=== PATIENT | female | born 1955 | race Caucasian/White ===

== ENCOUNTER 2016-09-08 17:56 | Inpatient (IN) ==
[2016-09-08] MEDS ORDERED: Lidocaine -MPF 1% 2 ML VIAL INFILT ONE (18:00)
--- NOTE | 2016-09-08 18:03 | Emergency Department Note ---
Disposition Clinical Impression: UTI (urinary tract infection) Qualifiers: Urinary tract infection type: site unspecified Hematuria presence: with hematuria Qualified Code(s): N39.0 - Urinary tract infection, site not specified Altered mental status Qualifiers: Altered mental status type: somnolence Qualified Code(s): R40.0 - Somnolence Disposition: Admitted As Inpatient Condition: Undetermined Time of Disposition: 21:14 Abdominal Pain HPI - General Chief Complaint: ED Abdominal Pain Stated Complaint: ABD PAIN Time Seen by Provider: 09/08/16 17:58 Source: EMS Mode of arrival: EMS Limitations: altered mental status Nursing Notes Reviewed: Yes Vital Signs Reviewed: Yes - History of Present Illness HPI Narrative: 61-year-old female with history of nonalcoholic cirrhosis arrives to [facility] emergency department with alteration in mentation, tachycardia for the past 24-48 hours. The patient currently lives at [facility] in [place] and was noted to be not acting like herself and somnolent over the past 24-48 hours by family. Family insisted the patient come to [facility] emergency department for further evaluation. The patient has a history of ascites as well as bilateral pedal edema. The patient is somnolent but is easily arousable and answering questions at this time. She is protecting her airway at this time. The patient was tachycardic on initial evaluation with a heart rate in the 130s and was hypotensive with a systolic in the 90s. The patient's blood pressure initially by EMS was noted that the patient's systolic was in the 70s. [place] [facility] [place] department her systolic is in the 90s. We will work the patient up at this time for concern for possible spontaneous bacterial peritonitis versus encephalopathy associated with an elevated ammonia, versus other etiology of patient's symptoms. Pt Subjective Complaint: abdominal pain Consistency: constant, Worsening Pain Severity: moderate Pain Scale: 5 Quality: aching Radiation: none Migration to: no migration Improves with: nothing Worsens with: nothing Context: history of similar episodes Treatments prior to arrival: none - Related Data Home Medications Medication Instructions Recorded Confirmed Alprazolam [Xanax 0.25 MG Tablet] 0.25 mg PO BID 09/08/16 09/08/16 Cyanocobalamin (Vitamin B-12) 400 mcg PO DAILY 09/08/16 09/08/16 [Vitamin B-12] Escitalopram [Lexapro] 10 mg PO DAILY 09/08/16 09/08/16 Furosemide [Lasix] 40 mg PO BID 09/08/16 09/08/16 Lactulose 20 gm PO QID 09/08/16 09/08/16 Magnesium Oxide [Mag-Ox] 400 mg PO TID 09/08/16 09/08/16 Pantoprazole Sodium [Protonix] 40 mg PO BID 09/08/16 09/08/16 Propranolol [Inderal] 20 mg PO Q8H 09/08/16 09/08/16 Rifaximin [Xifaxan] 550 mg PO BID 09/08/16 09/08/16 Spironolactone [Aldactone] 100 mg PO BID 09/08/16 09/08/16 Allergies Allergy/AdvReac Type Severity Reaction Status Date / Time codeine Allergy Rash Verified 04/10/16 10:30 Penicillins Allergy Rash Verified 04/10/16 10:30 desflurane AdvReac See Verified 09/08/16 21:08 Comments droperidol AdvReac See Verified 09/08/16 21:08 Comments fentanyl AdvReac See Verified 09/08/16 21:08 Comments midazolam AdvReac See Verified 09/08/16 21:08 Comments nitrofurantoin AdvReac See Verified 09/08/16 21:08 [From Macrobid] Comments Sulfa (Sulfonamide AdvReac See Verified 09/08/16 21:08 Antibiotics) Comments Limitations: ROS unobtainable due to patients medical condition Abdominal Pain PMH - Past Medical History Medical history: Reports: arthritis, asthma, cirrhosis, coronary artery disease , diabetes, hypertension Female Surgical History: Reports: non-contributory [employer]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 Abdomen: Abdomen is distended and has a fluid wave consistent with ascites, Normal bowel sounds 4 quadrants, patient abdomen is tender generalized without any focalization. : Patient deferred Extremities: Normal inspection, full range of motion, appropriate pulses, capillary refill under 2 seconds Neurological: Patient is somnolent and oriented x1, cranial nerves II through XII grossly intact, GCS 11 Skin: Warm, intact, no rashes noted Course - Reevaluation(s) Reevaluation #1: Dropped a sample of peritoneal fluid off to Latanya at 1905. Reevaluation #2: Patient appears to have hepatic encephalopathy as well as UTI. The patient is not at her baseline. She does not live at a nursing facility where she is able to feed and ambulate by herself. Diagnostic paracentesis revealed no acute abnormality. The ammonia was negative. The patient does have a urinary tract infection. We will admit the patient to the hospital at this time. Time: 20:47 Vital Signs Temperature 97.5 F L 09/08/16 17:58 Pulse Rate 79 09/08/16 17:58 Respiratory Rate 22 09/08/16 17:58 Blood Pressure 76/37 09/08/16 17:58 O2 Sat by Pulse Oximetry 98 09/08/16 17:58 Temperature 97.5 F L 09/08/16 17:58 Pulse Rate 76 09/08/16 20:38 Respiratory Rate 14 09/08/16 21:41 Blood Pressure 96/52 09/08/16 21:41 O2 Sat by Pulse Oximetry 99 09/08/16 20:38 Oxygen Delivery Oxygen Delivery Nasal Cannula Procedures - Paracentesis Consent Obtained: verbal consent Time Out Performed: Yes Local Anesthetic: lidocaine 1% Amount of anesthesia used (mL): 2 Fluid: clear, sent to lab for analysis Post Procedure Exam: awake, alert, normal BP, normal HR, normal SpO2 Patient Tolerated Procedure: well, no complications Complications: none Abdominal Pain - MDM Narrative Medical decision making narrative: Patient accepted by Dr. Francis - Medical Records Medical records reviewed: Yes I reviewed the patient's medical records. - Lab Data Lab results reviewed: Yes I reviewed the patient's lab results. Result diagrams: 09/08/16 19:18 09/08/16 19:18 Lab Results 03/28/17 03/28/17 03/28/17 Range/Units 18:10 19:10 19:18 WBC 5.8 (4.3-11.1) K/mcL RBC 3.91 (3.82-4.97) M/mcL Hgb 11.9 (11.5-15.4) g/dL Hct 36.5 (35.3-44.9) % MCV 93.4 (83.0-100.0) fL MCH 30.4 (28.0-33.3) pg MCHC 32.6 (31.6-35.5) g/dL RDW 17.6 H (11.5-14.5) % Plt Count 105 L (140-400) K/mcL MPV 10.1 (9.4-12.4) fL Immature Gran % 0.5 (0-4) % Seg Neutrophils % 69.5 % Lymphocytes % 17.5 % Monocytes % 10.4 % Eosinophils % 1.2 % Basophils % 0.9 % Neutrophils # 4.0 (1.6-8.9) K/mcL Lymphocytes # 1.0 (0.6-4.6) K/mcL Monocytes # 0.6 (0.0-1.3) K/mcL Eosinophils # 0.1 (0.0-0.6) K/mcL Basophils # 0.1 (0.0-0.2) K/mcL PT (9.4-12.1) Seconds INR APTT (26.0-36.0) Seconds Sodium (136-145) mEq/L Potassium (3.5-4.5) mEq/L Chloride (98-109) mEq/L Carbon Dioxide (19-29) mEq/L BUN (7-20) mg/dL Creatinine (0.57-1.11) mg/dL Est GFR ( Amer) (> 60) Est GFR (Non-Af Amer) (> 60) BUN/Creatinine Ratio (6-26) Glucose (70-99) mg/dL Calculated Osmolality (280-300) Lactic Acid (0.5-2.2) mmol/L Calcium (8.6-10.8) mg/dL Total Bilirubin (0.2-1.2) mg/dL AST (5-34) Units/L ALT (0-55) Units/L Alkaline Phosphatase (38-126) Units/L Ammonia (18-72) mcmol/L Troponin I (0-0.03) ng/mL Serum Total Protein (6.0-8.3) g/dL Albumin (3.5-5.0) g/dL Globulin (2.4-3.5) g/dL Albumin/Globulin Ratio (1.1-2.2) Lipase (8-78) Units/L Urine Color Yellow (Yellow) Urine Clarity Cloudy A (Clear) Urine pH 5.5 (5.0-8.0) pH Units Ur Specific [place] 1.013 (1.010-1.025) Urine Protein Negative (Neg-Trace) mg/dL Urine Glucose (UA) Normal (Normal) mg/dL Urine Ketones Negative (Negative) mg/dL Urine Blood Negative (Negative) Urine Nitrite Negative (Negative) Urine Bilirubin Negative (Negative) Urine Urobilinogen Normal (Normal) mg/dL Ur Leukocyte Esterase Moderate H (Negative) Urine Microscopic RBC 3-5 H (0-3) per hpf Urine Microscopic WBC 30-50 H (0-3) per hpf Ur Squamous Epith Cells Many H (None-Few) per lpf Urine Bacteria Moderate H (None-Few) per hpf Urine Yeast Moderate H (None Seen) per hpf Ur Culture Indicated? YES A (NO) Peritoneal Appearance CLEAR (Clear) Peritoneal Volume 58.0 mL Peritoneal RBC < 0.002 (0.000 - 0.002) M/mcL Periton Tot Nuc Cells 67 (0-300) TNC/mcL Periton Neutrophils 4.0 % Periton Band Neuts Test Not Performed Peritoneal Eosinophils Test Not Performed Peritoneal Basophils Test Not Performed Periton Lymphocytes % 62.0 % Periton Monocytes % 30.0 % Periton Other Cells % 4.0 % Peritoneal Tot Protein 1.2 (No Ref Range) g/dL Peritoneal LDH 60 (No Ref Range) Units/L 09/08/16 09/08/16 09/08/16 Range/Units 19:18 19:18 19:18 WBC (4.3-11.1) K/mcL RBC (3.82-4.97) M/mcL Hgb (11.5-15.4) g/dL Hct (35.3-44.9) % MCV (83.0-100.0) fL MCH (28.0-33.3) pg MCHC (31.6-35.5) g/dL RDW (11.5-14.5) % Plt Count (140-400) K/mcL MPV (9.4-12.4) fL Immature Gran % (0-4) % Seg Neutrophils % % Lymphocytes % % Monocytes % % Eosinophils % % Basophils % % Neutrophils # (1.6-8.9) K/mcL Lymphocytes # (0.6-4.6) K/mcL Monocytes # (0.0-1.3) K/mcL Eosinophils # (0.0-0.6) K/mcL Basophils # (0.0-0.2) K/mcL PT (9.4-12.1) Seconds INR APTT (26.0-36.0) Seconds Sodium 135 L (136-145) mEq/L Potassium 4.3 (3.5-4.5) mEq/L Chloride 100 (98-109) mEq/L Carbon Dioxide 31 H (19-29) mEq/L BUN 13 (7-20) mg/dL Creatinine 0.78 (0.57-1.11) mg/dL Est GFR ( Amer) > 60 (> 60) Est GFR (Non-Af Amer) > 60 (> 60) BUN/Creatinine Ratio 17 (6-26) Glucose 216 H (70-99) mg/dL Calculated Osmolality 287 (280-300) Lactic Acid (0.5-2.2) mmol/L Calcium 7.9 L (8.6-10.8) mg/dL Total Bilirubin 2.0 H (0.2-1.2) mg/dL AST 29 (5-34) Units/L ALT 15 (0-55) Units/L Alkaline Phosphatase 109 (38-126) Units/L Ammonia 49 (18-72) mcmol/L Troponin I 0.00 (0-0.03) ng/mL Serum Total Protein 5.5 L (6.0-8.3) g/dL Albumin 1.8 L (3.5-5.0) g/dL Globulin 3.7 H (2.4-3.5) g/dL Albumin/Globulin Ratio 0.5 L (1.1-2.2) Lipase 63 (8-78) Units/L Urine Color (Yellow) Urine Clarity (Clear) Urine pH (5.0-8.0) pH Units Ur Specific [place] (1.010-1.025) Urine Protein (Neg-Trace) mg/dL Urine Glucose (UA) (Normal) mg/dL Urine Ketones (Negative) mg/dL Urine Blood (Negative) Urine Nitrite (Negative) Urine Bilirubin (Negative) Urine Urobilinogen (Normal) mg/dL Ur Leukocyte Esterase (Negative) Urine Microscopic RBC (0-3) per hpf Urine Microscopic WBC (0-3) per hpf Ur Squamous Epith Cells (None-Few) per lpf Urine Bacteria (None-Few) per hpf Urine Yeast (None Seen) per hpf Ur Culture Indicated? (NO) Peritoneal Appearance (Clear) Peritoneal Volume mL Peritoneal RBC (0.000 - 0.002) M/mcL Periton Tot Nuc Cells (0-300) TNC/mcL Periton Neutrophils % Periton Band Neuts Peritoneal Eosinophils Peritoneal Basophils Periton Lymphocytes % % Periton Monocytes % % Periton Other Cells % % Peritoneal Tot Protein (No Ref Range) g/dL Peritoneal LDH (No Ref Range) Units/L 09/08/16 09/08/16 Range/Units 19:18 19:18 WBC (4.3-11.1) K/mcL RBC (3.82-4.97) M/mcL Hgb (11.5-15.4) g/dL Hct (35.3-44.9) % MCV (83.0-100.0) fL MCH (28.0-33.3) pg MCHC (31.6-35.5) g/dL RDW (11.5-14.5) % Plt Count (140-400) K/mcL MPV (9.4-12.4) fL Immature Gran % (0-4) % Seg Neutrophils % % Lymphocytes % % Monocytes % % Eosinophils % % Basophils % % Neutrophils # (1.6-8.9) K/mcL Lymphocytes # (0.6-4.6) K/mcL Monocytes # (0.0-1.3) K/mcL Eosinophils # (0.0-0.6) K/mcL Basophils # (0.0-0.2) K/mcL PT 20.6 H (9.4-12.1) Seconds INR 1.9 APTT 34.8 (26.0-36.0) Seconds Sodium (136-145) mEq/L Potassium (3.5-4.5) mEq/L Chloride (98-109) mEq/L Carbon Dioxide (19-29) mEq/L BUN (7-20) mg/dL Creatinine (0.57-1.11) mg/dL Est GFR ( Amer) (> 60) Est GFR (Non-Af Amer) (> 60) BUN/Creatinine Ratio (6-26) Glucose (70-99) mg/dL Calculated Osmolality (280-300) Lactic Acid 2.4 H (0.5-2.2) mmol/L Calcium (8.6-10.8) mg/dL Total Bilirubin (0.2-1.2) mg/dL AST (5-34) Units/L ALT (0-55) Units/L Alkaline Phosphatase (38-126) Units/L Ammonia (18-72) mcmol/L Troponin I (0-0.03) ng/mL Serum Total Protein (6.0-8.3) g/dL Albumin (3.5-5.0) g/dL Globulin (2.4-3.5) g/dL Albumin/Globulin Ratio (1.1-2.2) Lipase (8-78) Units/L Urine Color (Yellow) Urine Clarity (Clear) Urine pH (5.0-8.0) pH Units Ur Specific [place] (1.010-1.025) Urine Protein (Neg-Trace) mg/dL Urine Glucose (UA) (Normal) mg/dL Urine Ketones (Negative) mg/dL Urine Blood (Negative) Urine Nitrite (Negative) Urine Bilirubin (Negative) Urine Urobilinogen (Normal) mg/dL Ur Leukocyte Esterase (Negative) Urine Microscopic RBC (0-3) per hpf Urine Microscopic WBC (0-3) per hpf Ur Squamous Epith Cells (None-Few) per lpf Urine Bacteria (None-Few) per hpf Urine Yeast (None Seen) per hpf Ur Culture Indicated? (NO) Peritoneal Appearance (Clear) Peritoneal Volume mL Peritoneal RBC (0.000 - 0.002) M/mcL Periton Tot Nuc Cells (0-300) TNC/mcL Periton Neutrophils % Periton Band Neuts Peritoneal Eosinophils Peritoneal Basophils Periton Lymphocytes % % Periton Monocytes % % Periton Other Cells % % Peritoneal Tot Protein (No Ref Range) g/dL Peritoneal LDH (No Ref Range) Units/L - Radiology Data Radiology results reviewed: Yes I reviewed the patient's radiology results. - EKG Data EKG attestation: Yes I reviewed and interpreted this EKG. EKG results narrative: Heart rate 75 bpm. MO interval 136 ms. QTc 439 ms. Normal axis. Normal sinus rhythm. No ST elevation or ST depression noted. No acute changes noted.
[2016-09-08] MEDS ORDERED: 0.9 % Sodium Chloride 1,000 ML IVC ONE (18:05)
--- NOTE | 2016-09-08 18:05 | Emergency Department Note ---
Disposition Clinical Impression: UTI (urinary tract infection), Altered mental status Disposition: Admitted As Inpatient Condition: Undetermined General Adult HPI - General Chief complaint: ED Abdominal Pain Stated complaint: ABD PAIN Time Seen by Provider: 09/08/16 17:58 Source: EMS Mode of arrival: EMS Limitations: altered mental status - History of Present Illness Pain Scale: 5 - Related Data Home Medications Medication Instructions Recorded Confirmed Alprazolam [Xanax 0.25 MG Tablet] 0.25 mg PO BID 09/08/16 09/08/16 Cyanocobalamin (Vitamin B-12) 400 mcg PO DAILY 09/08/16 09/08/16 [Vitamin B-12] Escitalopram [Lexapro] 10 mg PO DAILY 09/08/16 09/08/16 Furosemide [Lasix] 40 mg PO BID 09/08/16 09/08/16 Lactulose 20 gm PO QID 09/08/16 09/08/16 Magnesium Oxide [Mag-Ox] 400 mg PO TID 09/08/16 09/08/16 Pantoprazole Sodium [Protonix] 40 mg PO BID 09/08/16 09/08/16 Propranolol [Inderal] 20 mg PO Q8H 09/08/16 09/08/16 Rifaximin [Xifaxan] 550 mg PO BID 09/08/16 09/08/16 Spironolactone [Aldactone] 100 mg PO BID 09/08/16 09/08/16 Allergies Allergy/AdvReac Type Severity Reaction Status Date / Time codeine Allergy Rash Verified 04/10/16 10:30 Penicillins Allergy Rash Verified 04/10/16 10:30 desflurane AdvReac See Verified 09/08/16 21:08 Comments droperidol AdvReac See Verified 09/08/16 21:08 Comments fentanyl AdvReac See Verified 09/08/16 21:08 Comments midazolam AdvReac See Verified 09/08/16 21:08 Comments nitrofurantoin AdvReac See Verified 09/08/16 21:08 [From Macrobid] Comments Sulfa (Sulfonamide AdvReac See Verified 09/08/16 21:08 Antibiotics) Comments Past Medical History - Past Medical History Medical history: Reports: arthritis, asthma, cirrhosis, coronary artery disease , diabetes, hypertension Surgical history: Reports: appendectomy, cholecystectomy, hysterectomy Psychiatric history: Reports: anxiety, depression - Social History Smoking Status: Never smoker Smokeless Tobacco Status: No Alcohol use: Reports: none Drug use: Reports: none Physical Exam - General Limitations: altered mental status General appearance: alert Course Vital Signs Temperature 97.5 F L 09/08/16 17:58 Pulse Rate 79 09/08/16 17:58 Respiratory Rate 22 09/08/16 17:58 Blood Pressure 76/37 09/08/16 17:58 O2 Sat by Pulse Oximetry 98 09/08/16 17:58 Temperature 97.7 F 09/08/16 23:24 Pulse Rate 70 09/09/16 06:10 Respiratory Rate 20 09/08/16 23:24 Blood Pressure 84/50 09/09/16 06:10 O2 Sat by Pulse Oximetry 100 09/09/16 06:10 Oxygen Delivery Oxygen Delivery Nasal Cannula Medical Decision Making - Lab Data Result diagrams: 09/09/16 06:05 09/09/16 06:05 Lab Results 09/08/16 09/08/16 09/08/16 Range/Units 18:10 19:10 19:18 WBC 5.8 (4.3-11.1) K/mcL RBC 3.91 (3.82-4.97) M/mcL Hgb 11.9 (11.5-15.4) g/dL Hct 36.5 (35.3-44.9) % MCV 93.4 (83.0-100.0) fL MCH 30.4 (28.0-33.3) pg MCHC 32.6 (31.6-35.5) g/dL RDW 17.6 H (11.5-14.5) % Plt Count 105 L (140-400) K/mcL MPV 10.1 (9.4-12.4) fL Immature Gran % 0.5 (0-4) % Seg Neutrophils % 69.5 % Lymphocytes % 17.5 % Monocytes % 10.4 % Eosinophils % 1.2 % Basophils % 0.9 % Neutrophils # 4.0 (1.6-8.9) K/mcL Lymphocytes # 1.0 (0.6-4.6) K/mcL Monocytes # 0.6 (0.0-1.3) K/mcL Eosinophils # 0.1 (0.0-0.6) K/mcL Basophils # 0.1 (0.0-0.2) K/mcL PT (9.4-12.1) Seconds INR APTT (26.0-36.0) Seconds Sodium (136-145) mEq/L Potassium (3.5-4.5) mEq/L Chloride (98-109) mEq/L Carbon Dioxide (19-29) mEq/L BUN (7-20) mg/dL Creatinine (0.57-1.11) mg/dL Est GFR ( Amer) (> 60) Est GFR (Non-Af Amer) (> 60) BUN/Creatinine Ratio (6-26) Glucose (70-99) mg/dL Calculated Osmolality (280-300) Lactic Acid (0.5-2.2) mmol/L Calcium (8.6-10.8) mg/dL Total Bilirubin (0.2-1.2) mg/dL AST (5-34) Units/L ALT (0-55) Units/L Alkaline Phosphatase (38-126) Units/L Ammonia (18-72) mcmol/L Troponin I (0-0.03) ng/mL Serum Total Protein (6.0-8.3) g/dL Albumin (3.5-5.0) g/dL Globulin (2.4-3.5) g/dL Albumin/Globulin Ratio (1.1-2.2) Lipase (8-78) Units/L Urine Color Yellow (Yellow) Urine Clarity Cloudy A (Clear) Urine pH 5.5 (5.0-8.0) pH Units Ur Specific [place] 1.013 (1.010-1.025) Urine Protein Negative (Neg-Trace) mg/dL Urine Glucose (UA) Normal (Normal) mg/dL Urine Ketones Negative (Negative) mg/dL Urine Blood Negative (Negative) Urine Nitrite Negative (Negative) Urine Bilirubin Negative (Negative) Urine Urobilinogen Normal (Normal) mg/dL Ur Leukocyte Esterase Moderate H (Negative) Urine Microscopic RBC 3-5 H (0-3) per hpf Urine Microscopic WBC 30-50 H (0-3) per hpf Ur Squamous Epith Cells Many H (None-Few) per lpf Urine Bacteria Moderate H (None-Few) per hpf Urine Yeast Moderate H (None Seen) per hpf Ur Culture Indicated? YES A (NO) Peritoneal Appearance CLEAR (Clear) Peritoneal Volume 58.0 mL Peritoneal RBC < 0.002 (0.000 - 0.002) M/mcL Periton Tot Nuc Cells 67 (0-300) TNC/mcL Periton Neutrophils 4.0 % Periton Band Neuts Test Not Performed Peritoneal Eosinophils Test Not Performed Peritoneal Basophils Test Not Performed Periton Lymphocytes % 62.0 % Periton Monocytes % 30.0 % Periton Other Cells % 4.0 % Peritoneal Tot Protein 1.2 (No Ref Range) g/dL Peritoneal LDH 60 (No Ref Range) Units/L 09/08/16 09/08/16 09/08/16 Range/Units 19:18 19:18 19:18 WBC (4.3-11.1) K/mcL RBC (3.82-4.97) M/mcL Hgb (11.5-15.4) g/dL Hct (35.3-44.9) % MCV (83.0-100.0) fL MCH (28.0-33.3) pg MCHC (31.6-35.5) g/dL RDW (11.5-14.5) % Plt Count (140-400) K/mcL MPV (9.4-12.4) fL Immature Gran % (0-4) % Seg Neutrophils % % Lymphocytes % % Monocytes % % Eosinophils % % Basophils % % Neutrophils # (1.6-8.9) K/mcL Lymphocytes # (0.6-4.6) K/mcL Monocytes # (0.0-1.3) K/mcL Eosinophils # (0.0-0.6) K/mcL Basophils # (0.0-0.2) K/mcL PT (9.4-12.1) Seconds INR APTT (26.0-36.0) Seconds Sodium 135 L (136-145) mEq/L Potassium 4.3 (3.5-4.5) mEq/L Chloride 100 (98-109) mEq/L Carbon Dioxide 31 H (19-29) mEq/L BUN 13 (7-20) mg/dL Creatinine 0.78 (0.57-1.11) mg/dL Est GFR ( Amer) > 60 (> 60) Est GFR (Non-Af Amer) > 60 (> 60) BUN/Creatinine Ratio 17 (6-26) Glucose 216 H (70-99) mg/dL Calculated Osmolality 287 (280-300) Lactic Acid (0.5-2.2) mmol/L Calcium 7.9 L (8.6-10.8) mg/dL Total Bilirubin 2.0 H (0.2-1.2) mg/dL AST 29 (5-34) Units/L ALT 15 (0-55) Units/L Alkaline Phosphatase 109 (38-126) Units/L Ammonia 49 (18-72) mcmol/L Troponin I 0.00 (0-0.03) ng/mL Serum Total Protein 5.5 L (6.0-8.3) g/dL Albumin 1.8 L (3.5-5.0) g/dL Globulin 3.7 H (2.4-3.5) g/dL Albumin/Globulin Ratio 0.5 L (1.1-2.2) Lipase 63 (8-78) Units/L Urine Color (Yellow) Urine Clarity (Clear) Urine pH (5.0-8.0) pH Units Ur Specific [place] (1.010-1.025) Urine Protein (Neg-Trace) mg/dL Urine Glucose (UA) (Normal) mg/dL Urine Ketones (Negative) mg/dL Urine Blood (Negative) Urine Nitrite (Negative) Urine Bilirubin (Negative) Urine Urobilinogen (Normal) mg/dL Ur Leukocyte Esterase (Negative) Urine Microscopic RBC (0-3) per hpf Urine Microscopic WBC (0-3) per hpf Ur Squamous Epith Cells (None-Few) per lpf Urine Bacteria (None-Few) per hpf Urine Yeast (None Seen) per hpf Ur Culture Indicated? (NO) Peritoneal Appearance (Clear) Peritoneal Volume mL Peritoneal RBC (0.000 - 0.002) M/mcL Periton Tot Nuc Cells (0-300) TNC/mcL Periton Neutrophils % Periton Band Neuts Peritoneal Eosinophils Peritoneal Basophils Periton Lymphocytes % % Periton Monocytes % % Periton Other Cells % % Peritoneal Tot Protein (No Ref Range) g/dL Peritoneal LDH (No Ref Range) Units/L 09/08/16 09/08/16 Range/Units 19:18 19:18 WBC (4.3-11.1) K/mcL RBC (3.82-4.97) M/mcL Hgb (11.5-15.4) g/dL Hct (35.3-44.9) % MCV (83.0-100.0) fL MCH (28.0-33.3) pg MCHC (31.6-35.5) g/dL RDW (11.5-14.5) % Plt Count (140-400) K/mcL MPV (9.4-12.4) fL Immature Gran % (0-4) % Seg Neutrophils % % Lymphocytes % % Monocytes % % Eosinophils % % Basophils % % Neutrophils # (1.6-8.9) K/mcL Lymphocytes # (0.6-4.6) K/mcL Monocytes # (0.0-1.3) K/mcL Eosinophils # (0.0-0.6) K/mcL Basophils # (0.0-0.2) K/mcL PT 20.6 H (9.4-12.1) Seconds INR 1.9 APTT 34.8 (26.0-36.0) Seconds Sodium (136-145) mEq/L Potassium (3.5-4.5) mEq/L Chloride (98-109) mEq/L Carbon Dioxide (19-29) mEq/L BUN (7-20) mg/dL Creatinine (0.57-1.11) mg/dL Est GFR ( Amer) (> 60) Est GFR (Non-Af Amer) (> 60) BUN/Creatinine Ratio (6-26) Glucose (70-99) mg/dL Calculated Osmolality (280-300) Lactic Acid 2.4 H (0.5-2.2) mmol/L Calcium (8.6-10.8) mg/dL Total Bilirubin (0.2-1.2) mg/dL AST (5-34) Units/L ALT (0-55) Units/L Alkaline Phosphatase (38-126) Units/L Ammonia (18-72) mcmol/L Troponin I (0-0.03) ng/mL Serum Total Protein (6.0-8.3) g/dL Albumin (3.5-5.0) g/dL Globulin (2.4-3.5) g/dL Albumin/Globulin Ratio (1.1-2.2) Lipase (8-78) Units/L Urine Color (Yellow) Urine Clarity (Clear) Urine pH (5.0-8.0) pH Units Ur Specific [place] (1.010-1.025) Urine Protein (Neg-Trace) mg/dL Urine Glucose (UA) (Normal) mg/dL Urine Ketones (Negative) mg/dL Urine Blood (Negative) Urine Nitrite (Negative) Urine Bilirubin (Negative) Urine Urobilinogen (Normal) mg/dL Ur Leukocyte Esterase (Negative) Urine Microscopic RBC (0-3) per hpf Urine Microscopic WBC (0-3) per hpf Ur Squamous Epith Cells (None-Few) per lpf Urine Bacteria (None-Few) per hpf Urine Yeast (None Seen) per hpf Ur Culture Indicated? (NO) Peritoneal Appearance (Clear) Peritoneal Volume mL Peritoneal RBC (0.000 - 0.002) M/mcL Periton Tot Nuc Cells (0-300) TNC/mcL Periton Neutrophils % Periton Band Neuts Peritoneal Eosinophils Peritoneal Basophils Periton Lymphocytes % % Periton Monocytes % % Periton Other Cells % % Peritoneal Tot Protein (No Ref Range) g/dL Peritoneal LDH (No Ref Range) Units/L Attestation Statement - Attestation Attestation: I examined this patient and my medical decision-making was reviewed with the HEMATOLOGIST ONCOLOGIST/PA/Advanced Practice Nurse/Resident Physician. I agree with the documented findings, disposition and treatment plan as described except to the extent set forth below. [id number] time provided Patient presents from extended care facility with change in mental status. She is a poor historian on exam but has a distended abdomen. Concern for ascites. Home medication list reviewed by me. I did speak with the patient's spouse, Kurtis, and he provided verbal [id number] consent for an abdominal paracentesis if medically indicated. Acute infectious versus metabolic workup initiated in conjunction with Dr. Garvey
[2016-09-08 18:18] LABS: Bilirubin,Urine Negative (Negative); Blood,Urine Negative (Negative); Clarity,Urine Cloudy (Clear); Color,Urine Yellow (Yellow); Glucose,Urine (UA) Normal (Normal); Ketones,Urine Negative (Negative); Leukocyte Esterase,Urine Moderate (Negative); Nitrite,Urine Negative (Negative); PH,Urine 5.5 pH Units (5.0-8.0); Protein,Urine Negative (Neg-Trace); Specific Gravity,Urine 1.013 (1.010-1.025); Urobilinogen,Urine Normal (Normal)
[2016-09-08 18:19] LABS: Bacteria,Urine Moderate per hpf (None-Few); Squamous Epithelial Cell,Urine Many per lpf (None-Few); WBC,Urine 30-50 per hpf (0-3)
[2016-09-08 18:32] LABS: Yeast,Urine Moderate per hpf (None Seen)
[2016-09-08] MEDS ORDERED: Lidocaine -MPF 1% 2 ML VIAL ONE (18:36)
[2016-09-08 19:26] LABS: Basophils % 0.9 %; Eosinophils % 1.2 %; Hematocrit 36.5 % (35.3-44.9); Hemoglobin 11.9 g/dL (11.5-15.4); Immature Granulocytes % 0.5 % (0-4); Lymphocytes % 17.5 %; Mean Corpuscular HGB Conc 32.6 g/dL (31.6-35.5); Mean Corpuscular Hemoglobin 30.4 pg (28.0-33.3); Mean Corpuscular Volume 93.4 fL (83.0-100.0); Mean Platelet Volume 10.1 fL (9.4-12.4); Monocytes % 10.4 %; Platelet Count 105 K/mcL (140-400); Red Blood Count 3.91 M/mcL (3.82-4.97); Red Cell Distribution Width 17.6 % (11.5-14.5); Segmented Neutrophils % 69.5 %
[2016-09-08 19:27] LABS: LDH,Peritoneal Fluid 60 Units/L (No Ref Range); Total Protein,Peritoneal Fluid 1.2 g/dL (No Ref Range)
[2016-09-08 19:27] LABS: Basophils # 0.1 K/mcL (0.0-0.2); Eosinophils # 0.1 K/mcL (0.0-0.6); Monocytes # 0.6 K/mcL (0.0-1.3)
[2016-09-08 19:29] LABS: RBC,Peritoneal Fluid < 0.002 M/mcL
[2016-09-08 19:33] LABS: Appearance of Peritoneal Fl CLEAR (Clear)
[2016-09-08 19:40] LABS: Alanine Aminotransferase 15 Units/L (0-55); Albumin/Globulin Ratio 0.5 (1.1-2.2); Alkaline Phosphatase 109 Units/L (38-126); Aspartate Amino Transferase 29 Units/L (5-34); BUN/Creatinine Ratio 17 (6-26); Blood Urea Nitrogen 13 mg/dL (7-20); Calcium 7.9 mg/dL (8.6-10.8); Carbon Dioxide 31 mEq/L (19-29); Chloride 100 mEq/L (98-109); Globulin 3.7 g/dL (2.4-3.5); Glucose 216 mg/dL (70-99); Lipase 63 Units/L (8-78); Osmolality,Calculated 287 (280-300); Potassium 4.3 mEq/L (3.5-4.5); Sodium 135 mEq/L (136-145); eGFR For African Americans > 60 (> 60); eGFR For Non-African Americans > 60 (> 60)
[2016-09-08 19:41] LABS: Albumin 1.8 g/dL (3.5-5.0); Total Protein 5.5 g/dL (6.0-8.3)
[2016-09-08 20:18] LABS: INR 1.9; Prothrombin Time 20.6 Seconds (9.4-12.1)
[2016-09-08 20:20] LABS: Activated Partial Thrombo Time 34.8 Seconds (26.0-36.0)
--- NOTE | 2016-09-08 21:59 | Internal Med History&Physical ---
Date of Encounter: 09/08/16 Time of Encounter: 21:55 Assessment and Plan (1) Altered mental status Current visit: Yes Status: Acute Patient admitted due to altered mental status in the setting of a patient with chronic liver disease. Spontaneous bacterial peritonitis has been ruled out. No evidence of pneumonia. However, patient has an abnormal urinalysis consistent with urinary tract infection which could exacerbate an hepatic encephalopathy. Ammonia levels are within normal limits, however this does not exclude acute encephalopathy as a source of the confusion. No intracranial bleeding noted in the CT scan of the head. We will continue with IV antibiotics, lactulose, neurochecks. Monitor hemoglobin, kidney function test and electrolytes. DVT prophylaxis. GI prophylaxis. Qualifiers: Altered mental status type: somnolence Qualified Code(s): R40.0 - Somnolence (2) UTI (urinary tract infection) Current visit: Yes Status: Acute Continue with IV antibiotics. Follow urine culture. Adjust therapy according to cultures. 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 Internal Medicine - H&P: HPI Chief complaint: AMS Admitted From: Emergency Dept Plans for Post Hospital Care: [facility] History of present illness: Ms. Otero is a 61 year old female with a history of chronic liver disease, patient is a resident of an extended care facility. She presented for emergency department due to increasing altered mental status. Patient is a poor historian due to mental condition, chronic in that that was obtained from the medical records and ER notes. He has history of ascites. She had a paracentesis done in the emergency department which ruled out spontaneous bacterial peritonitis. Upon presentation to ED she was hypotensive with a blood pressure 76/37, later improved to 101/54. Temperature was 97.5, heart rate was 79, respiratory rate was 22. WBC count was 8.8, hemoglobin 11.9, hematocrit 36.5, platelet count 105,000. Sodium 135, potassium 4.3, chloride 100, bicarbonate 31, BUN 13, creatinine 0.78, glucose 216. Urinalysis revealed a WBC count of 30-50. Prothrombin time was 20, INR 1.9. Chest x-ray was consistent with CHF. Head CT was unremarkable. The patient was given a dose of antibiotics in the emergency department. She was admitted for further management and workup. Past Med Surg Social Fam HX - Past Medical History Medical history: arthritis, asthma, cirrhosis, coronary artery disease, diabetes , hypertension Psychiatric history: anxiety, depression - Past Surgical History Surgical History: appendectomy, cholecystectomy, hysterectomy - Social History Smoking Status: Never smoker Smokeless Tobacco Status: No Alcohol use: none Drug use: none Internal Medicine - H&P: Meds Alprazolam [Xanax 0.25 MG Tablet] 0.25 mg PO BID 09/08/16 [History] Cyanocobalamin (Vitamin B-12) [Vitamin B-12] 400 mcg PO DAILY 09/08/16 [History] Escitalopram [Lexapro] 10 mg PO DAILY 09/08/16 [History] Furosemide [Lasix] 40 mg PO BID 09/08/16 [History] Lactulose 20 gm PO QID 09/08/16 [History] Magnesium Oxide [Mag-Ox] 400 mg PO TID 09/08/16 [History] Pantoprazole Sodium [Protonix] 40 mg PO BID 09/08/16 [History] Propranolol [Inderal] 20 mg PO Q8H 09/08/16 [History] Rifaximin [Xifaxan] 550 mg PO BID 09/08/16 [History] Spironolactone [Aldactone] 100 mg PO BID 09/08/16 [History] Allergies codeine Allergy (Verified 04/10/16 10:30) Rash Penicillins Allergy (Verified 04/10/16 10:30) Rash desflurane Adverse Reaction (Verified 09/08/16 21:08) See Comments per ECF list droperidol Adverse Reaction (Verified 09/08/16 21:08) See Comments per ECF list fentanyl Adverse Reaction (Verified 09/08/16 21:08) See Comments per ECF list midazolam Adverse Reaction (Verified 09/08/16 21:08) See Comments per ECF list nitrofurantoin [From Macrobid] Adverse Reaction (Verified 09/08/16 21:08) See Comments per ECF list Sulfa (Sulfonamide Antibiotics) Adverse Reaction (Verified 09/08/16 21:08) See Comments per ECF list ROS unobtainable: due to mental status All Systems PM: A 10-system review of systems was performed and is negative for pertinent findings except as documented above in the HPI. - Constitutional Constitutional: no chills, no fever(s), no night sweats - EENT Eyes: no change in vision, no discharge, no pain, no photophobia Ears: no ear discharge, no ear pain, no tinnitus Nose, mouth and throat: no dysphagia, no nasal discharge, no neck pain, no sore throat - Cardiovascular Cardiovascular ROS IM: no chest pain, no diaphoresis, no dyspnea, no lightheadedness, no palpitations, no syncope - Respiratory Respiratory: no cough, no dyspnea, no wheezing, no excessive phlegm production - Gastrointestinal Gastrointestinal: no abdominal pain, no diarrhea, no hematemesis, no hematochezia, no melena, no nausea, no vomiting - Genitourinary Genitourinary: no change in urinary stream, no dysuria, no flank pain, no hematuria - Musculoskeletal Musculoskeletal ROS IM: no numbness, no tingling - Integumentary Integumentary IM: no rash, no unusual bruising - Neurological Neurological ROS: no confusion, no convulsions, no focal weakness, no numbness, no tingling, no tremor(s) - Hematologic/Lymphatic Hematologic/Lymphatic: no easy bruising - Constitutional Vitals: Temp Pulse Resp BP Pulse Ox 97.5 F L 76 14 96/52 99 09/08/16 17:58 09/08/16 20:38 09/08/16 21:41 09/08/16 21:41 09/08/16 20:38 General appearance: Present: A&O X 2, no acute distress Exam: The patient is alert, oriented to person, partially oriented in place, not oriented in time. She does not look to be in respiratory distress. - Head Head exam: Present: atraumatic, normocephalic - Eye Eye exam: Present: PERRL, conjuntiva pink, sclera anicteric Pupils: Present: PERRL - Neck Neck exam general surgery: Present: supple, trachea midline. Absent: lymphadenopathy - Respiratory Respiratory exam: Present: CTAB. Absent: accessory muscle use, rales, rhonchi, wheezes - Cardiovascular Cardiovascular exam: Present: RRR, +S1, +S2. Absent: diastolic murmur, gallop, rubs, systolic murmur - GI/Abdominal GI/Abdominal exam: Present: normal bowel sounds, soft, no peritoneal signs. Absent: distended, tenderness Additional comments: She has ascites, however there are no signs of rebound tenderness. - Extremities Exam Extremities exam: Present: warm, radial pulses palpable and symetrical. Absent : calf tenderness, cyanotic, pedal edema - Neurological Exam Neurological exam: Present: CN II-XII intact, no focal deficits. Absent: pronater drift, facial droop, speech deficit - Skin Skin exam: Present: dry, intact Internal Med - H&P Results - Labs CBC & Chem 7: 09/08/16 19:18 09/08/16 19:18
[2016-09-08] MEDS ORDERED: Naloxone 0.4 MG/ML INJ IVP PRN (22:09)
[2016-09-08] MEDS: Pantoprazole 40 MG VIAL IVP SCH (23:57)
[2016-09-08] MEDS: Lactulose Oral Soln 20 GM/30 ML UDC PO SCH (23:57)
[2016-09-08] MEDS: D5% in 0.45% NACL 1,000 ML IVC SCH (23:58)
[2016-09-09] MEDS: Pantoprazole 40 MG VIAL IVP SCH (06:06)
[2016-09-09 06:43] LABS: Basophils % 0.9 %
[2016-09-09 06:45] LABS: Basophils # 0.1 K/mcL (0.0-0.2); Eosinophils # 0.1 K/mcL (0.0-0.6); Eosinophils % 1.7 %; Hematocrit 33.9 % (35.3-44.9); Hemoglobin 10.9 g/dL (11.5-15.4); Immature Granulocytes % 0.7 % (0-4); Immature Platelets 2.3 % (1.1-6.1); Lymphocytes # 1.1 K/mcL (0.6-4.6); Lymphocytes % 21.3 %; Mean Corpuscular HGB Conc 32.2 g/dL (31.6-35.5); Mean Corpuscular Volume 93.4 fL (83.0-100.0); Monocytes # 0.6 K/mcL (0.0-1.3); Monocytes % 11.2 %; Neutrophils # 3.4 K/mcL (1.6-8.9); Red Blood Count 3.63 M/mcL (3.82-4.97); Red Cell Distribution Width 17.4 % (11.5-14.5); Segmented Neutrophils % 64.2 %
[2016-09-09 06:53] LABS: Platelet Count 95 K/mcL (140-400)
[2016-09-09 06:58] LABS: Alanine Aminotransferase 14 Units/L (0-55); Albumin/Globulin Ratio 0.5 (1.1-2.2); Alkaline Phosphatase 94 Units/L (38-126); Aspartate Amino Transferase 29 Units/L (5-34); BUN/Creatinine Ratio 19 (6-26); Blood Urea Nitrogen 13 mg/dL (7-20); Calcium 7.7 mg/dL (8.6-10.8); Carbon Dioxide 27 mEq/L (19-29); Chloride 100 mEq/L (98-109); Globulin 3.5 g/dL (2.4-3.5); Glucose 173 mg/dL (70-99); Magnesium 1.2 mg/dL (1.6-2.6); Osmolality,Calculated 282 (280-300); Sodium 134 mEq/L (136-145); Total Protein 5.2 g/dL (6.0-8.3); eGFR For African Americans > 60 (> 60); eGFR For Non-African Americans > 60 (> 60)
[2016-09-09 06:59] LABS: Albumin 1.7 g/dL (3.5-5.0)
--- NOTE | 2016-09-09 09:15 | Electrocardiograph Report ---
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
--- NOTE | 2016-09-09 09:57 | Internal Med Progress Note ---
Date of Encounter: 09/09/16 Time of Encounter: 09:55 - Assessment and plan (1) Altered mental status Current Visit: Yes Status: Acute Assessment and plan: Etiology: Multifactorial. -Possible encepalopathy aggravated by underlying sepsis, likely source urine. Supportive findings: Hypotension on arrival, Dirty UA - Hepatic encepaholopathy still can not be rule out and will get GIon board if she is still like this tomorrow morning. - Infectious causes in terms of meningtis is remote as she does not have neck stiffness. plan - We will continue present treatment plan at this point.(Continue IV fluids, intravenous antibiotics and laxatives.) -Fall precaution. -Close monitoring. -We will update family regarding plan upon their arrival. Qualifiers: Altered mental status type: somnolence Qualified Code(s): R40.0 - Somnolence (2) UTI (urinary tract infection) Current Visit: Yes Status: Acute Assessment and plan: Possible source of sepsis. Presently on IV ceftriaxone: Day 2 Will await for culture. Qualifiers: Urinary tract infection type: site unspecified Hematuria presence: with hematuria Qualified Code(s): N39.0 - Urinary tract infection, site not specified; R31.9 - Hematuria, unspecified (3) Chronic liver disease Current Visit: Yes Status: Acute Assessment and plan: Patient is known to have her chronic liver disease She has not been worked up here in this hospital. We will get gastroenterology to follow. We will follow opinion from gastroenterology. (4) DVT prophylaxis Current Visit: Yes Status: Acute Assessment and plan: Patient has INR of 2 due to underlying liver disease. Patient does not need any anticoagulation at this point. Medical decision making: This patient has a moderate to severe risk of worsening clinical in spite of being on appropriate treatment. - Subjective Interval history: Patient seen and examined. Chart reviewed. Patient is altered and her response to only painful stimuli. No family at bedside. This patient needs an inpatient status as her acute problems. - Constitutional Vitals: Temp Pulse Resp BP Pulse Ox 97.6 F 68 16 106/57 100 09/09/16 07:34 09/09/16 07:34 09/09/16 07:34 09/09/16 07:34 09/09/16 07:34 General appearance: Present: A&O X 2, no acute distress - Head Head exam: Present: atraumatic, normocephalic - Eye Eye exam: Present: PERRL, conjuntiva pink, sclera anicteric Pupils: Present: PERRL - Neck Neck exam general surgery: Present: supple, trachea midline. Absent: lymphadenopathy - Respiratory Respiratory exam: Present: CTAB. Absent: accessory muscle use, rales, rhonchi, wheezes - Cardiovascular Cardiovascular exam: Present: RRR, +S1, +S2. Absent: diastolic murmur, gallop, rubs, systolic murmur - GI/Abdominal GI/Abdominal exam: Present: normal bowel sounds, soft, no peritoneal signs. Absent: distended, tenderness - Extremities Exam Extremities exam: Present: warm, radial pulses palpable and symetrical. Absent : calf tenderness, cyanotic, pedal edema - Neurological Exam Neurological exam: Present: CN II-XII intact, oriented X3, no focal deficits. Absent: pronater drift, facial droop, speech deficit - Skin Skin exam: Present: dry, intact Internal Medicine: Result - Labs CBC & Chem 7: 09/09/16 06:05 09/09/16 06:05 Labs: Short CBC 09/09/16 Range/Units 06:05 WBC 5.3 (4.3-11.1) K/mcL Hgb 10.9 L (11.5-15.4) g/dL Hct 33.9 L (35.3-44.9) % Plt Count 95 L (140-400) K/mcL Neutrophils # 3.4 (1.6-8.9) K/mcL BMP 09/09/16 06:05 Sodium 134 L Potassium 4.0 Chloride 100 Carbon Dioxide 27 BUN 13 Creatinine 0.69 Glucose 173 H Calcium 7.7 L Liver Function 09/09/16 Range/Units 06:05 Total Bilirubin 2.0 H (0.2-1.2) mg/dL AST 29 (5-34) Units/L ALT 14 (0-55) Units/L Alkaline Phosphatase 94 (38-126) Units/L Albumin 1.7 L (3.5-5.0) g/dL - ABG Interpretation ABG results: PT/INR, D-dimer PT 22.0 Seconds (9.4-12.1) H 09/09/16 06:05 Consult Discharge Plan - Plan Referrals: Mustapah Peña MD [Primary Care Provider] -
[2016-09-09] MEDS: Lactulose Oral Soln 20 GM/30 ML UDC PO SCH ×4 (12:55→22:46)
[2016-09-09] MEDS: Magnesium Oxide 400 MG TABLET PO SCH ×3 (12:55→22:50)
[2016-09-09] MEDS: D5% in 0.45% NACL 1,000 ML IVC SCH (17:44)
[2016-09-10] MEDS ORDERED: D5% in 0.45% NACL 1,000 ML IVC ONE (05:12)
[2016-09-10] MEDS: Pantoprazole 40 MG VIAL IVP SCH (05:14)
[2016-09-10 06:06] LABS: Basophils % 0.9 %; Hemoglobin 11.5 g/dL (11.5-15.4); Red Cell Distribution Width 17.2 % (11.5-14.5)
[2016-09-10 06:07] LABS: Prothrombin Time 21.5 Seconds (9.4-12.1)
[2016-09-10 06:08] LABS: Basophils # 0.1 K/mcL (0.0-0.2); Eosinophils # 0.1 K/mcL (0.0-0.6); Eosinophils % 1.3 %; Hematocrit 34.4 % (35.3-44.9); Immature Granulocytes % 0.6 % (0-4); Immature Platelets 1.7 % (1.1-6.1); Lymphocytes # 1.2 K/mcL (0.6-4.6); Lymphocytes % 21.9 %; Mean Corpuscular HGB Conc 33.4 g/dL (31.6-35.5); Mean Corpuscular Hemoglobin 31.2 pg (28.0-33.3); Mean Corpuscular Volume 93.2 fL (83.0-100.0); Mean Platelet Volume 9.8 fL (9.4-12.4); Monocytes # 0.7 K/mcL (0.0-1.3); Monocytes % 13.4 %; Red Blood Count 3.69 M/mcL (3.82-4.97); Segmented Neutrophils % 61.9 %
[2016-09-10 06:11] LABS: Neutrophils # 3.3 K/mcL (1.6-8.9); Platelet Count 88 K/mcL (140-400)
[2016-09-10 06:23] LABS: Alanine Aminotransferase 15 Units/L (0-55); Albumin/Globulin Ratio 0.4 (1.1-2.2); Alkaline Phosphatase 94 Units/L (38-126); Aspartate Amino Transferase 28 Units/L (5-34); BUN/Creatinine Ratio 19 (6-26); Bilirubin,Total 2.1 mg/dL (0.2-1.2); Blood Urea Nitrogen 13 mg/dL (7-20); Calcium 7.8 mg/dL (8.6-10.8); Carbon Dioxide 26 mEq/L (19-29); Chloride 100 mEq/L (98-109); Globulin 3.7 g/dL (2.4-3.5); Glucose 206 mg/dL (70-99); Osmolality,Calculated 278 (280-300); Potassium 4.2 mEq/L (3.5-4.5); Sodium 131 mEq/L (136-145); Total Protein 5.3 g/dL (6.0-8.3); eGFR For African Americans > 60 (> 60); eGFR For Non-African Americans > 60 (> 60)
[2016-09-10 06:25] LABS: Albumin 1.6 g/dL (3.5-5.0)
[2016-09-10] MEDS: Magnesium Oxide 400 MG TABLET PO SCH ×3 (09:08→21:10)
[2016-09-10] MEDS: Lactulose Oral Soln 20 GM/30 ML UDC PO SCH ×4 (09:08→21:10)
--- NOTE | 2016-09-10 15:41 | Internal Med Progress Note ---
Date of Encounter: 09/09/16 Time of Encounter: 15:38 - Assessment and plan (1) Altered mental status Current Visit: Yes Status: Acute Assessment and plan: Etiology: Multifactorial. -Possible encepalopathy aggravated by underlying sepsis, likely source urine. Supportive findings: Hypotension on arrival, Dirty UA - Hepatic encepaholopathy still can not be rule out and will get GIon board if she is still like this tomorrow morning. - Infectious causes in terms of meningtis is remote as she does not have neck stiffness. plan - We will continue present treatment plan at this point.(Continue IV fluids, intravenous antibiotics and laxatives.) -Fall precaution. -Close monitoring. -We will update family regarding plan upon their arrival. 09/10/2016. Likely reason for altered mental status is underlying sepsis, source: Possible urinary tract infection We will continue antibiotics at this time. We will monitor her very closely. Qualifiers: Altered mental status type: somnolence Qualified Code(s): R40.0 - Somnolence (2) UTI (urinary tract infection) Current Visit: Yes Status: Acute Assessment and plan: Possible source of sepsis. Presently on IV ceftriaxone: Day 2 Will await for culture. 09/10/2016. Noted that urine culture is growing gram-negative malachi. We will continue present antibiotics. Ceftriaxone: Day 3 Qualifiers: Urinary tract infection type: site unspecified Hematuria presence: with hematuria Qualified Code(s): N39.0 - Urinary tract infection, site not specified; R31.9 - Hematuria, unspecified (3) Chronic liver disease Current Visit: Yes Status: Acute Assessment and plan: Patient is known to have her chronic liver disease She has not been worked up here in this hospital. We will get gastroenterology to follow. We will follow opinion from gastroenterology. 09/10/2016. Records received from the previous hospital. Patient was hospitalized on 09/02/2016 at [facility]. 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 Patient was referred to gastroenterology. We did not receive any information regarding previous screening EGD, any previous invasive/noninvasive procedure. Gastroenterology on the board. Patient is scheduled for EGD tomorrow. (4) DVT prophylaxis Current Visit: Yes Status: Acute Assessment and plan: Patient has INR of 2 due to underlying liver disease. Patient does not need any anticoagulation at this point. Medical decision making: This patient has a moderate to severe risk of worsening clinical in spite of being on appropriate treatment. - Subjective Interval history: Patient seen and examined. Chart reviewed. Patient is altered and her response to only painful stimuli. No family at bedside. This patient needs an inpatient status as her acute problems. 09/10/2016 Patient seen and examined. Chart reviewed. Patient is more alert and oriented. Patient answered. All the questions. Patient's diet advanced. - Constitutional Vitals: Temp Pulse Resp BP Pulse Ox 97.7 F 79 15 117/68 100 09/10/16 12:24 09/10/16 12:24 09/10/16 12:24 09/10/16 12:24 09/10/16 12:24 General appearance: Present: A&O X 2, no acute distress - Head Head exam: Present: atraumatic, normocephalic - Eye Eye exam: Present: PERRL, conjuntiva pink, sclera anicteric Pupils: Present: PERRL - Neck Neck exam general surgery: Present: supple, trachea midline. Absent: lymphadenopathy - Respiratory Respiratory exam: Present: CTAB. Absent: accessory muscle use, rales, rhonchi, wheezes - Cardiovascular Cardiovascular exam: Present: RRR, +S1, +S2. Absent: diastolic murmur, gallop, rubs, systolic murmur - GI/Abdominal GI/Abdominal exam: Present: normal bowel sounds, soft, no peritoneal signs. Absent: distended, tenderness - Extremities Exam Extremities exam: Present: warm, radial pulses palpable and symetrical. Absent : calf tenderness, cyanotic, pedal edema - Neurological Exam Neurological exam: Present: CN II-XII intact, oriented X3, no focal deficits. Absent: pronater drift, facial droop, speech deficit - Skin Skin exam: Present: dry, intact Internal Medicine: Result - Labs CBC & Chem 7: 09/10/16 05:31 09/10/16 05:31 Labs: Short CBC 09/10/16 Range/Units 05:31 WBC 5.4 (4.3-11.1) K/mcL Hgb 11.5 (11.5-15.4) g/dL Hct 34.4 L (35.3-44.9) % Plt Count 88 L (140-400) K/mcL Neutrophils # 3.3 (1.6-8.9) K/mcL BMP 09/10/16 05:31 Sodium 131 L Potassium 4.2 Chloride 100 Carbon Dioxide 26 BUN 13 Creatinine 0.70 Glucose 206 H Calcium 7.8 L Liver Function 09/10/16 Range/Units 05:31 Total Bilirubin 2.1 H (0.2-1.2) mg/dL AST 28 (5-34) Units/L ALT 15 (0-55) Units/L Alkaline Phosphatase 94 (38-126) Units/L Albumin 1.6 L (3.5-5.0) g/dL - ABG Interpretation ABG results: PT/INR, D-dimer PT 21.5 Seconds (9.4-12.1) H 09/10/16 05:31 - VTE Documentation of Mechanical Device: Intermittent pneumatic compression device Consult Discharge Plan - Plan Referrals: Mustapha Peña MD [Primary Care Provider] -
[2016-09-11] MEDS: Pantoprazole 40 MG VIAL IVP SCH (06:23)
[2016-09-11 06:44] LABS: BUN/Creatinine Ratio 16 (6-26); Blood Urea Nitrogen 12 mg/dL (7-20); Carbon Dioxide 26 mEq/L (19-29); Chloride 99 mEq/L (98-109); Hemoglobin 10.5 g/dL (11.5-15.4); Immature Granulocytes % 0.4 % (0-4); Mean Corpuscular Hemoglobin 31.3 pg (28.0-33.3); Potassium 4.1 mEq/L (3.5-4.5); Red Blood Count 3.36 M/mcL (3.82-4.97); Red Cell Distribution Width 17.1 % (11.5-14.5); Sodium 129 mEq/L (136-145); eGFR For African Americans > 60 (> 60)
[2016-09-11 06:45] LABS: Alanine Aminotransferase 15 Units/L (0-55); Albumin/Globulin Ratio 0.5 (1.1-2.2); Alkaline Phosphatase 93 Units/L (38-126); Aspartate Amino Transferase 27 Units/L (5-34); Bilirubin,Total 2.1 mg/dL (0.2-1.2); Calcium 7.8 mg/dL (8.6-10.8); Globulin 3.5 g/dL (2.4-3.5); Glucose 187 mg/dL (70-99); Magnesium 1.4 mg/dL (1.6-2.6); Osmolality,Calculated 273 (280-300); Total Protein 5.2 g/dL (6.0-8.3); eGFR For Non-African Americans > 60 (> 60)
[2016-09-11 06:46] LABS: Albumin 1.7 g/dL (3.5-5.0); Basophils % 0.6 %; Eosinophils # 0.1 K/mcL (0.0-0.6); Eosinophils % 1.6 %; Hematocrit 30.8 % (35.3-44.9); Immature Platelets 2.7 % (1.1-6.1); Lymphocytes # 1.2 K/mcL (0.6-4.6); Lymphocytes % 23.8 %; Mean Corpuscular HGB Conc 34.1 g/dL (31.6-35.5); Mean Corpuscular Volume 91.7 fL (83.0-100.0); Mean Platelet Volume 10.3 fL (9.4-12.4); Monocytes # 0.7 K/mcL (0.0-1.3); Monocytes % 13.1 %; Neutrophils # 3.1 K/mcL (1.6-8.9); Segmented Neutrophils % 60.5 %
[2016-09-11 06:48] LABS: Platelet Count 89 K/mcL (140-400)
[2016-09-11 09:19] LABS: Prothrombin Time 21.7 Seconds (9.4-12.1)
[2016-09-11] MEDS ORDERED: *HR* Phytonadione 5 MG TABLET PO ONE ×2 (09:40→11:13)
[2016-09-11] MEDS: Lactulose Oral Soln 20 GM/30 ML UDC PO SCH ×4 (09:57→20:19)
[2016-09-11] MEDS: Magnesium Oxide 400 MG TABLET PO SCH ×3 (09:57→20:19)
[2016-09-11 11:41] LABS: Hepatitis B Surface Antigen Nonreactive (Nonreactive); Hepatitis C Virus Antibody Nonreactive (Nonreactive)
[2016-09-11 11:42] LABS: Hepatitis A Antibody IgM Nonreactive (Nonreactive)
--- NOTE | 2016-09-11 11:43 | Gastroenterology Consult Note ---
<FrankelTono bryant Jewel - Last Filed: 09/11/16 11:38> Date of Encounter: 09/09/16 Time of Encounter: 10:30 - Assessment and plan (1) Cirrhosis Current Visit: Yes Status: Acute Assessment and plan: Secondary to MAYER. On admission MELD Na 19, Child-Carmen Class C, DF 48.5. Today, MELD Na 23, Child-Carmen Class C, DF 53.6. CT A/P consistent with cirrhosis and ascites. Complete liver work up and liver US. Increase rifaximin to 400 mg 3 times a day while inpatient, and 550 mg twice a day while outpatient. Titrate lactulose for BMs per day. Paracentesis completed in ED negative for SBP. No previous history of EGD. Plan for diagnostic EGD on Wednesday. Recommend correcting INR, and we will plan for EGD on Wednesday. Qualifiers: Hepatic cirrhosis type: unspecified hepatic cirrhosis Ascites presence: with ascites Qualified Code(s): K74.60 - Unspecified cirrhosis of liver (2) Altered mental status Current Visit: Yes Status: Acute Assessment and plan: Improved. Qualifiers: Altered mental status type: somnolence Qualified Code(s): R40.0 - Somnolence (3) Thrombocytopenia Current Visit: Yes Status: Acute Assessment and plan: Secondary to cirrhosis. (4) Ascites Current Visit: Yes Status: Acute Assessment and plan: Secondary to cirrhosis. Qualifiers: Ascites type: other type Qualified Code(s): R18.8 - Other ascites - Time Spent With Patient Total time spent is greater than 50% in coordination of care (as documented) at patient's floor/unit and/or counseling patient: GI History of Present Illness - Data of Consult Patient: new to practice Consult date: 09/11/16 Requesting Physician: Vasquez Myers MD - Consult Narrative Reason for consult: cirrhosis History of present illness: Ms. 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 History obtained from chart review. Pt is able to answer most questions during my exam. She denies alcohol use. She reports some abdominal tenderness, but denies nausea, vomiting, hematemesis, melena, or hematochezia. Paracentesis completed in ED negative for SBP. No history of previous EGD. INR on admission 1.9 and yesterday INR 2. Procedures: None NSAIDs: None Anticoagulation: None Past Med Surg Social Fam HX - Past Medical History Medical history: arthritis, asthma, cirrhosis, coronary artery disease, diabetes , hypertension Psychiatric history: anxiety, depression - Past Surgical History Surgical History: appendectomy, cholecystectomy, hysterectomy - Social History Smoking Status: Never smoker Smokeless Tobacco Status: No Alcohol use: none Drug use: none - Gastrointestinal Gastrointestinal: Present: as per HPI - Constitutional Constitutional: as per HPI - EENT Eyes: as per HPI Ears: Present: as per HPI Nose, mouth and throat: Present: as per HPI - Cardiovascular Cardiovascular ROS: Present: as per HPI - Respiratory Respiratory IM: Present: as per HPI - Genitourinary Genitourinary: Absent: change in color, Urinary frequency - Neurological ROS Neurological GI: Present: as per HPI - Hematologic/Lymphatic Hematologic/Lymphatic pediatric: Present: as per HPI - Musculoskeletal Musculoskeletal ROS GI: Present: as per HPI - Integumentary Integumentary GI: Present: as per HPI - Psychiatric ROS Psychiatric GI: Present: as per HPI - Endocrine Endocrine IM: Present: as per HPI - Constitutional Vitals: Temp Pulse Resp BP Pulse Ox 97.6 F 89 16 109/62 95 09/11/16 06:50 09/11/16 06:50 09/11/16 06:50 09/11/16 06:50 09/11/16 06:50 General appearance: Present: cooperative, A&O X 3, no acute distress, answers questions appropriately - Head Head exam: Present: atraumatic, normocephalic - Eye Eye exam: Present: normal appearance, sclera anicteric - ENT ENT exam: Present: mucous membranes dry - Neck Neck exam general surgery: Present: normal inspection, trachea midline - Respiratory Respiratory exam: Present: decreased breath sounds, CTAB - Cardiovascular Cardiovascular exam: Present: RRR, +S1, +S2 - GI/Abdominal GI/Abdominal exam: Present: distended, firm, normal bowel sounds, soft, tenderness (mild RUQ/epigastric), no peritoneal signs. Absent: guarding - Expanded GI/Abdominal Exam GI/Abdominal exam expanded: Present: ascites - Rectal Rectal exam: Present: deferred - Extremities Exam Extremities exam: Present: warm - Neurological Exam Neurological exam: Present: no focal deficits - Psychiatric Psychiatric exam: Present: normal affect, normal mood - Skin Skin exam: Present: dry, intact, warm Additional comments: spider angiomata upper chest Results - Labs CBC & Chem 7: 09/11/16 06:08 09/11/16 06:08 Labs: Last Result Calcium 7.8 mg/dL (8.6-10.8) L 09/11/16 06:08 Troponin I 0.00 ng/mL (0-0.03) 09/08/16 19:18 Peritoneal Appearance CLEAR (Clear) 09/08/16 19:10 Peritoneal Volume 58.0 mL 09/08/16 19:10 Peritoneal RBC < 0.002 M/mcL (0.000-0.002) 09/08/16 19:10 Periton Tot Nuc Cells 67 TNC/mcL (0-300) 09/08/16 19:10 Periton Band Neuts Test Not Performed 09/08/16 19:10 Periton Lymphocytes % 62.0 % 09/08/16 19:10 Periton Monocytes % 30.0 % 09/08/16 19:10 Periton Other Cells % 4.0 % 09/08/16 19:10 Peritoneal Tot Protein 1.2 g/dL (No Ref Range) 09/08/16 19:10 Peritoneal LDH 60 Units/L (No Ref Range) 09/08/16 19:10 Entire Visit Hgb 10.5 g/dL (11.5-15.4) L 09/11/16 06:08 Hct 30.8 % (35.3-44.9) L 09/11/16 06:08 PT 21.7 Seconds (9.4-12.1) H 09/11/16 09:01 Total Bilirubin 2.1 mg/dL (0.2-1.2) H 09/11/16 06:08 AST 27 Units/L (5-34) 09/11/16 06:08 ALT 15 Units/L (0-55) 09/11/16 06:08 Ammonia 49 mcmol/L (18-72) 09/08/16 19:18 Lipase 63 Units/L (8-78) 09/08/16 19:18 - ABG ABG results: PT/INR, D-dimer PT 21.7 Seconds (9.4-12.1) H 09/11/16 09:01 - Impressions Impressions Abdomen/Pelvis CT 09/10/16 20:00 IMPRESSION: 1. No acute findings identified within the abdomen and pelvis. 2. Liver cirrhosis and portal hypertension. Large ascites. Collateral vasculature suggestive of esophageal varices. D/ / 09/10/2016 22:55:42 Riley Atkinson MD / Maeve Meyers Interpreting Provider: Riley Atkinson MD Consult Discharge Plan - Plan Referrals: Mustapha Peña MD [Primary Care Provider] - <[email or web address] - Last Filed: 09/11/16 13:06> Date of Encounter: 09/09/16 Time of Encounter: 10:40 - Time Spent With Patient Total time spent is greater than 50% in coordination of care (as documented) at patient's floor/unit and/or counseling patient: GI History of Present Illness - Data of Consult Requesting Physician: Vasquez Myers MD - Consult Narrative History of present illness: Ms. Otero is a 61 year old female - Constitutional Vitals: Temp Pulse Resp BP Pulse Ox 97.8 F 89 15 111/58 95 09/11/16 11:38 09/11/16 11:38 09/11/16 11:38 09/11/16 11:38 09/11/16 11:38 Results - Labs CBC & Chem 7: 09/11/16 06:08 09/11/16 06:08 Labs: Last Result Calcium 7.8 mg/dL (8.6-10.8) L 09/11/16 06:08 Ferritin 125 ng/ml (5-204) 09/11/16 09:01 Troponin I 0.00 ng/mL (0-0.03) 09/08/16 19:18 Peritoneal Appearance CLEAR (Clear) 09/08/16 19:10 Peritoneal Volume 58.0 mL 09/08/16 19:10 Peritoneal RBC < 0.002 M/mcL (0.000-0.002) 09/08/16 19:10 Periton Tot Nuc Cells 67 TNC/mcL (0-300) 09/08/16 19:10 Periton Band Neuts Test Not Performed 09/08/16 19:10 Periton Lymphocytes % 62.0 % 09/08/16 19:10 Periton Monocytes % 30.0 % 09/08/16 19:10 Periton Other Cells % 4.0 % 09/08/16 19:10 Peritoneal Tot Protein 1.2 g/dL (No Ref Range) 09/08/16 19:10 Peritoneal LDH 60 Units/L (No Ref Range) 09/08/16 19:10 Entire Visit Hgb 10.5 g/dL (11.5-15.4) L 09/11/16 06:08 Hct 30.8 % (35.3-44.9) L 09/11/16 06:08 PT 21.7 Seconds (9.4-12.1) H 09/11/16 09:01 Ferritin 125 ng/ml (5-204) 09/11/16 09:01 Total Bilirubin 2.1 mg/dL (0.2-1.2) H 09/11/16 06:08 AST 27 Units/L (5-34) 09/11/16 06:08 ALT 15 Units/L (0-55) 09/11/16 06:08 Ammonia 49 mcmol/L (18-72) 09/08/16 19:18 Lipase 63 Units/L (8-78) 09/08/16 19:18 - ABG ABG results: PT/INR, D-dimer PT 21.7 Seconds (9.4-12.1) H 09/11/16 09:01 - Impressions Impressions Abdomen/Pelvis CT 09/10/16 20:00 IMPRESSION: 1. No acute findings identified within the abdomen and pelvis. 2. Liver cirrhosis and portal hypertension. Large ascites. Collateral vasculature suggestive of esophageal varices. D/ / 09/10/2016 22:55:42 Riley Atkinson MD / Maeve Meyers Interpreting Provider: Riley Atkinson MD Liver Ultrasound 09/11/16 11:30 IMPRESSION: Findings consistent with cirrhosis with perihepatic ascites Increased renal cortical echogenicity consistent with medical renal disease Status postcholecystectomy D/ / Sai Christianson MD / Sai Christianson MD Interpreting Provider: Sai Christianson MD - Attending Attestation I examined this patient and my medical decision-making was reviewed with the PROGRAM RESEARCH SPECIALIST/PA/Advanced Practice Nurse/Resident Physician. I agree with the documented findings, disposition and treatment plan as described except to the extent set forth below.
[2016-09-11 12:22] LABS: Hepatitis B Core IgM Nonreactive (Nonreactive)
--- NOTE | 2016-09-11 14:30 | Internal Med Progress Note ---
Date of Encounter: 09/09/16 Time of Encounter: 14:28 - Assessment and plan (1) Altered mental status Current Visit: Yes Status: Acute Assessment and plan: Etiology: Multifactorial. -Possible encepalopathy aggravated by underlying sepsis, likely source urine. Supportive findings: Hypotension on arrival, Dirty UA - Hepatic encepaholopathy still can not be rule out and will get GIon board if she is still like this tomorrow morning. - Infectious causes in terms of meningtis is remote as she does not have neck stiffness. plan - We will continue present treatment plan at this point.(Continue IV fluids, intravenous antibiotics and laxatives.) -Fall precaution. -Close monitoring. -We will update family regarding plan upon their arrival. 09/10/2016. Likely reason for altered mental status is underlying sepsis, source: Possible urinary tract infection We will continue antibiotics at this time. We will monitor her very closely. 09/11/2016 more alert no new complaints close monitoring. Qualifiers: Altered mental status type: somnolence Qualified Code(s): R40.0 - Somnolence (2) UTI (urinary tract infection) Current Visit: Yes Status: Acute Assessment and plan: Possible source of sepsis. Presently on IV ceftriaxone: Day 2 Will await for culture. 09/10/2016. Noted that urine culture is growing gram-negative malachi. We will continue present antibiotics. Ceftriaxone: Day 3 09/11/2016 Culture Urine : ESBL E coli Sensitive to meropenum started meropenum 1 grm q8h day 1 meropenum. Qualifiers: Urinary tract infection type: site unspecified Hematuria presence: with hematuria Qualified Code(s): N39.0 - Urinary tract infection, site not specified; R31.9 - Hematuria, unspecified (3) Chronic liver disease Current Visit: Yes Status: Acute Assessment and plan: Patient is known to have her chronic liver disease She has not been worked up here in this hospital. We will get gastroenterology to follow. We will follow opinion from gastroenterology. 09/10/2016. Records received from the previous hospital. Patient was hospitalized on 09/02/2016 at [facility]. 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 Patient was referred to gastroenterology. We did not receive any information regarding previous screening EGD, any previous invasive/noninvasive procedure. Gastroenterology on the board. Patient is scheduled for EGD tomorrow. 09/11/2016 CT abdomen confirmed Cirrhosis GI on board Noted INR is 2 will get her oral Vit K 10 mg every day for 3 days repeat INR om Wednesday possible survillance EGD on Wednesday. patient and family aware of the plan (4) DVT prophylaxis Current Visit: Yes Status: Acute Assessment and plan: Patient has INR of 2 due to underlying liver disease. Patient does not need any anticoagulation at this point. Medical decision making: This patient has a moderate to severe risk of worsening clinical in spite of being on appropriate treatment. - Subjective Interval history: Patient seen and examined. Chart reviewed. Patient is altered and her response to only painful stimuli. No family at bedside. This patient needs an inpatient status as her acute problems. 09/10/2016 Patient seen and examined. Chart reviewed. Patient is more alert and oriented. Patient answered. All the questions. Patient's diet advanced. 09/11/2016 seen and examined. more alert patient's son at bedside no new complaints. - Constitutional Vitals: Temp Pulse Resp BP Pulse Ox 97.8 F 89 15 111/58 95 09/11/16 11:38 09/11/16 11:38 09/11/16 11:38 09/11/16 11:38 09/11/16 11:38 General appearance: Present: A&O X 2, no acute distress - Head Head exam: Present: atraumatic, normocephalic - Eye Eye exam: Present: PERRL, conjuntiva pink, sclera anicteric Pupils: Present: PERRL - Neck Neck exam general surgery: Present: supple, trachea midline. Absent: lymphadenopathy - Respiratory Respiratory exam: Present: CTAB. Absent: accessory muscle use, rales, rhonchi, wheezes - Cardiovascular Cardiovascular exam: Present: RRR, +S1, +S2. Absent: diastolic murmur, gallop, rubs, systolic murmur - GI/Abdominal GI/Abdominal exam: Present: normal bowel sounds, soft, no peritoneal signs. Absent: distended, tenderness - Extremities Exam Extremities exam: Present: warm, radial pulses palpable and symetrical. Absent : calf tenderness, cyanotic, pedal edema - Neurological Exam Neurological exam: Present: CN II-XII intact, oriented X3, no focal deficits. Absent: pronater drift, facial droop, speech deficit - Skin Skin exam: Present: dry, intact Internal Medicine: Result - Labs CBC & Chem 7: 09/11/16 06:08 09/11/16 06:08 Labs: Short CBC 09/11/16 Range/Units 06:08 WBC 5.1 (4.3-11.1) K/mcL Hgb 10.5 L (11.5-15.4) g/dL Hct 30.8 L (35.3-44.9) % Plt Count 89 L (140-400) K/mcL Neutrophils # 3.1 (1.6-8.9) K/mcL BMP 09/11/16 06:08 Sodium 129 L Potassium 4.1 Chloride 99 Carbon Dioxide 26 BUN 12 Creatinine 0.73 Glucose 187 H Calcium 7.8 L Liver Function 09/11/16 Range/Units 06:08 Total Bilirubin 2.1 H (0.2-1.2) mg/dL AST 27 (5-34) Units/L ALT 15 (0-55) Units/L Alkaline Phosphatase 93 (38-126) Units/L Albumin 1.7 L (3.5-5.0) g/dL - ABG Interpretation ABG results: PT/INR, D-dimer PT 21.7 Seconds (9.4-12.1) H 09/11/16 09:01 - Impressions Impressions Abdomen/Pelvis CT 09/10/16 20:00 IMPRESSION: 1. No acute findings identified within the abdomen and pelvis. 2. Liver cirrhosis and portal hypertension. Large ascites. Collateral vasculature suggestive of esophageal varices. D/ / 09/10/2016 22:55:42 Riley Atkinson MD / Maeve Meyers Interpreting Provider: Riley Atkinson MD Liver Ultrasound 09/11/16 11:30 IMPRESSION: Findings consistent with cirrhosis with perihepatic ascites Increased renal cortical echogenicity consistent with medical renal disease Status postcholecystectomy D/ / Sai Christianson MD / Sai Christianson MD Interpreting Provider: Sai Christianson MD - VTE Documentation of Mechanical Device: Intermittent pneumatic compression device Consult Discharge Plan - Plan Referrals: Mustapha Peña MD [Primary Care Provider] -
[2016-09-11] MEDS: Meropenem 1,000 MG in 0.9 % Sodium Chloride Mini Bag 100 ML IVPB SCH ×2 (16:54→23:23)
[2016-09-12] MEDS: Pantoprazole 40 MG VIAL IVP SCH (05:47)
[2016-09-12 07:24] LABS: Prothrombin Time 21.6 Seconds (9.4-12.1)
[2016-09-12 07:34] LABS: Hematocrit 29.6 % (35.3-44.9); Immature Granulocytes % 0.4 % (0-4)
[2016-09-12 07:36] LABS: Alanine Aminotransferase 15 Units/L (0-55); Albumin/Globulin Ratio 0.4 (1.1-2.2); Alkaline Phosphatase 89 Units/L (38-126); Aspartate Amino Transferase 26 Units/L (5-34); BUN/Creatinine Ratio 19 (6-26); Basophils # 0.1 K/mcL (0.0-0.2); Basophils % 1.1 %; Bilirubin,Total 2.4 mg/dL (0.2-1.2); Blood Urea Nitrogen 13 mg/dL (7-20); Carbon Dioxide 24 mEq/L (19-29); Chloride 100 mEq/L (98-109); Eosinophils # 0.1 K/mcL (0.0-0.6); Eosinophils % 1.9 %; Globulin 3.6 g/dL (2.4-3.5); Glucose 169 mg/dL (70-99); Immature Platelets 2.4 % (1.1-6.1); Lymphocytes # 1.3 K/mcL (0.6-4.6); Lymphocytes % 27.2 %; Mean Corpuscular HGB Conc 33.8 g/dL (31.6-35.5); Mean Corpuscular Hemoglobin 31.2 pg (28.0-33.3); Mean Corpuscular Volume 92.2 fL (83.0-100.0); Mean Platelet Volume 10.4 fL (9.4-12.4); Monocytes % 13.7 %; Neutrophils # 2.6 K/mcL (1.6-8.9); Osmolality,Calculated 278 (280-300); Platelet Count 87 K/mcL (140-400); Potassium 4.3 mEq/L (3.5-4.5); Red Blood Count 3.21 M/mcL (3.82-4.97); Segmented Neutrophils % 55.7 %; Sodium 132 mEq/L (136-145); Total Protein 5.2 g/dL (6.0-8.3); eGFR For African Americans > 60 (> 60); eGFR For Non-African Americans > 60 (> 60)
[2016-09-12 07:37] LABS: Albumin 1.6 g/dL (3.5-5.0)
[2016-09-12] MEDS: Meropenem 1,000 MG in 0.9 % Sodium Chloride Mini Bag 100 ML IVPB SCH ×3 (08:04→23:49)
[2016-09-12] MEDS: *HR* Phytonadione 5 MG TABLET PO SCH (08:05)
[2016-09-12] MEDS: Lactulose Oral Soln 20 GM/30 ML UDC PO SCH ×4 (08:05→20:20)
[2016-09-12] MEDS: Magnesium Oxide 400 MG TABLET PO SCH ×3 (08:05→20:19)
[2016-09-12 09:28] LABS: Monocytes # 0.6 K/mcL (0.0-1.3)
[2016-09-12 09:29] LABS: Platelet Estimate Decreased (Normal)
--- NOTE | 2016-09-12 12:59 | Internal Med Progress Note ---
Date of Encounter: 09/12/16 Time of Encounter: 12:55 - Assessment and plan (1) Chronic liver disease Current Visit: Yes Status: Acute Assessment and plan: Patient is known to have her chronic liver disease She has not been worked up here in this hospital. We will get gastroenterology to follow. We will follow opinion from gastroenterology. 09/10/2016. Records received from the previous hospital. Patient was hospitalized on 09/02/2016 at [facility]. 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 Patient was referred to gastroenterology. We did not receive any information regarding previous screening EGD, any previous invasive/noninvasive procedure. Gastroenterology on the board. Patient is scheduled for EGD tomorrow. 09/11/2016 CT abdomen confirmed Cirrhosis GI on board Noted INR is 2 will get her oral Vit K 10 mg every day for 3 days repeat INR om Wednesday possible survillance EGD on Wednesday. patient and family aware of the plan 09/12/2016. INR: 2 Received vitamin K 10 mg yesterday. We will give vitamin K 10 mg by mouth daily. MELD score 22 Child Carmen : C Possible referral to [facility]. Family is strongly about the same and will let me know either today or tomorrow (2) Altered mental status Current Visit: Yes Status: Acute Assessment and plan: Etiology: Multifactorial. -Possible encepalopathy aggravated by underlying sepsis, likely source urine. Supportive findings: Hypotension on arrival, Dirty UA - Hepatic encepaholopathy still can not be rule out and will get GIon board if she is still like this tomorrow morning. - Infectious causes in terms of meningtis is remote as she does not have neck stiffness. plan - We will continue present treatment plan at this point.(Continue IV fluids, intravenous antibiotics and laxatives.) -Fall precaution. -Close monitoring. -We will update family regarding plan upon their arrival. 09/10/2016. Likely reason for altered mental status is underlying sepsis, source: Possible urinary tract infection We will continue antibiotics at this time. We will monitor her very closely. 09/11/2016 more alert no new complaints close monitoring. 09/12/2016 Patient is more alert as compared to yesterday. She denies any complaints. We will continue close monitoring. Qualifiers: Altered mental status type: somnolence Qualified Code(s): R40.0 - Somnolence (3) UTI (urinary tract infection) Current Visit: Yes Status: Acute Assessment and plan: Possible source of sepsis. Presently on IV ceftriaxone: Day 2 Will await for culture. 09/10/2016. Noted that urine culture is growing gram-negative malachi. We will continue present antibiotics. Ceftriaxone: Day 3 09/11/2016 Culture Urine : ESBL E coli Sensitive to meropenum started meropenum 1 grm q8h day 1 meropenum. 09/12/2016. Meropenem:day2 Patient is more alert and oriented as compared to yesterday. We will continue to monitor patient's progress very closely. Qualifiers: Urinary tract infection type: site unspecified Hematuria presence: with hematuria Qualified Code(s): N39.0 - Urinary tract infection, site not specified; R31.9 - Hematuria, unspecified (4) DVT prophylaxis Current Visit: Yes Status: Acute Assessment and plan: Patient has INR of 2 due to underlying liver disease. Patient does not need any anticoagulation at this point. Medical decision making: This patient has a moderate to severe risk of worsening clinical in spite of being on appropriate treatment. - Subjective Interval history: Patient seen and examined. Chart reviewed. Patient is altered and her response to only painful stimuli. No family at bedside. This patient needs an inpatient status as her acute problems. 09/10/2016 Patient seen and examined. Chart reviewed. Patient is more alert and oriented. Patient answered. All the questions. Patient's diet advanced. 09/11/2016 seen and examined. more alert patient's son at bedside no new complaints. 09/12/2016 - Constitutional Vitals: Temp Pulse Resp BP Pulse Ox 97.8 F 86 14 96/54 96 09/12/16 11:15 09/12/16 11:15 09/12/16 11:15 09/12/16 11:15 09/12/16 11:15 General appearance: Present: A&O X 2, no acute distress - Head Head exam: Present: atraumatic, normocephalic - Eye Eye exam: Present: PERRL, conjuntiva pink, sclera anicteric Pupils: Present: PERRL - Neck Neck exam general surgery: Present: supple, trachea midline. Absent: lymphadenopathy - Respiratory Respiratory exam: Present: CTAB. Absent: accessory muscle use, rales, rhonchi, wheezes - Cardiovascular Cardiovascular exam: Present: RRR, +S1, +S2. Absent: diastolic murmur, gallop, rubs, systolic murmur - GI/Abdominal GI/Abdominal exam: Present: normal bowel sounds, soft, no peritoneal signs. Absent: distended, tenderness - Extremities Exam Extremities exam: Present: warm, radial pulses palpable and symetrical. Absent : calf tenderness, cyanotic, pedal edema - Neurological Exam Neurological exam: Present: CN II-XII intact, oriented X3, no focal deficits. Absent: pronater drift, facial droop, speech deficit - Skin Skin exam: Present: dry, intact Internal Medicine: Result - Labs CBC & Chem 7: 09/12/16 06:55 09/12/16 06:55 Labs: Short CBC 09/12/16 Range/Units 06:55 WBC 4.7 (4.3-11.1) K/mcL Hgb 10.0 L (11.5-15.4) g/dL Hct 29.6 L (35.3-44.9) % Plt Count 87 L (140-400) K/mcL Neutrophils # 2.6 (1.6-8.9) K/mcL BMP 09/12/16 06:55 Sodium 132 L Potassium 4.3 Chloride 100 Carbon Dioxide 24 BUN 13 Creatinine 0.69 Glucose 169 H Calcium 8.0 L Liver Function 09/12/16 Range/Units 06:55 Total Bilirubin 2.4 H (0.2-1.2) mg/dL AST 26 (5-34) Units/L ALT 15 (0-55) Units/L Alkaline Phosphatase 89 (38-126) Units/L Albumin 1.6 L (3.5-5.0) g/dL - ABG Interpretation ABG results: PT/INR, D-dimer PT 21.6 Seconds (9.4-12.1) H 09/12/16 06:55 - Impressions Impressions Abdomen/Pelvis CT 09/10/16 20:00 IMPRESSION: 1. No acute findings identified within the abdomen and pelvis. 2. Liver cirrhosis and portal hypertension. Large ascites. Collateral vasculature suggestive of esophageal varices. D/ / 09/10/2016 22:55:42 Riley Atkinson MD / Maeve Meyers Interpreting Provider: Riley Atkinson MD - VTE Documentation of Mechanical Device: Intermittent pneumatic compression device Consult Discharge Plan - Plan Referrals: Mustapha Peña MD [Primary Care Provider] -
[2016-09-12 14:36] LABS: AFP Tumor Marker Non-Pregnant 14 ng/mL (0-9); Alpha-1-Antitrypsin 137 mg/dL (90-200)
[2016-09-13] MEDS: Pantoprazole 40 MG VIAL IVP SCH (05:36)
[2016-09-13] MEDS: Magnesium Oxide 400 MG TABLET PO SCH ×2 (09:04→17:16)
[2016-09-13] MEDS: Lactulose Oral Soln 20 GM/30 ML UDC PO SCH ×3 (09:04→17:16)
[2016-09-13] MEDS: *HR* Phytonadione 5 MG TABLET PO SCH (09:04)
[2016-09-13] MEDS: Meropenem 1,000 MG in 0.9 % Sodium Chloride Mini Bag 100 ML IVPB SCH ×2 (09:07→17:16)
--- NOTE | 2016-09-13 09:56 | Discharge Summary ---
Addendum entered and electronically signed by Sandip Harvey DO 09/13/16 13:24: I called patient's son Kurtis Otero to inform that patient's has agreed to transfer patient to [facility] for further liver transplantation work-up. He verbalized his understanding and is aware of transfer will likely happen later today. Original Note: <Sandip Harvey - Last Filed: 09/13/16 11:23> Date of Encounter: 09/13/16 Time of Encounter: 09:30 - Discharge Diagnosis (1) Chronic liver disease Priority: Primary Status: Acute (2) Altered mental status Priority: Secondary Status: Acute Qualifiers: Altered mental status type: somnolence Qualified Code(s): R40.0 - Somnolence (3) UTI (urinary tract infection) Priority: Secondary Status: Acute Qualifiers: Urinary tract infection type: site unspecified Hematuria presence: with hematuria Qualified Code(s): N39.0 - Urinary tract infection, site not specified; R31.9 - Hematuria, unspecified - Discharge Medications Home Medications: Alprazolam [Xanax 0.25 MG Tablet] 0.25 mg PO BID 09/08/16 [History] Cyanocobalamin (Vitamin B-12) [Vitamin B-12] 400 mcg PO DAILY 09/08/16 [History] Escitalopram [Lexapro] 10 mg PO DAILY 09/08/16 [History] Furosemide [Lasix] 40 mg PO BID 09/08/16 [History] Lactulose 20 gm PO QID 09/08/16 [History] Magnesium Oxide [Mag-Ox] 400 mg PO TID 09/08/16 [History] Propranolol [Inderal] 20 mg PO Q8H 09/08/16 [History] Spironolactone [Aldactone] 100 mg PO BID 09/08/16 [History] Pantoprazole [Protonix] 40 mg IVP 0630 vial 09/13/16 [Rx] Phytonadione [Mephyton] 10 mg PO DAILY tablet 09/13/16 [Rx] Rifaximin [Xifaxan] 400 mg PO TID tablet 09/13/16 [Rx] Allergies/Adverse Reactions: Allergies codeine Allergy (Verified 04/10/16 10:30) Rash Penicillins Allergy (Verified 04/10/16 10:30) Rash desflurane Adverse Reaction (Verified 09/08/16 21:08) See Comments per ECF list droperidol Adverse Reaction (Verified 09/08/16 21:08) See Comments per ECF list fentanyl Adverse Reaction (Verified 09/08/16 21:08) See Comments per ECF list midazolam Adverse Reaction (Verified 09/08/16 21:08) See Comments per ECF list nitrofurantoin [From Macrobid] Adverse Reaction (Verified 09/08/16 21:08) See Comments per ECF list Sulfa (Sulfonamide Antibiotics) Adverse Reaction (Verified 09/08/16 21:08) See Comments per ECF list Procedures/tests Complete & Pending: Procedures Performed prior 72 hours Category Date Time Status CT abd pelvis w iv and oral [CT] Routine Cat Scan 09/10/16 20:00 Completed US liver [US] Routine Exams 09/11/16 11:30 Completed Date of admission: 09/08/16 22:31 Primary care physician: Mustapha Peña MD Consults: 09/09/16 00:26 Consult to Freelance Digital Project Manager [CONS] Routine Reason for SW Consult: patient is from [facility] 09/10/16 08:52 Consult to Gastroenterology [CONS] Routine Consulting Provider: Imelda Leon Reason for Consult: ?Cirrhosis, Spoke with Diaz Call Completed: Yes 09/10/16 11:08 Consult to Wound Care [CONS] Routine Reason for Consult: stage 2 to coccyx Call Completed: No Discharging clinician: Sandip Harvey Anticipated date of discharge: 09/13/16 - Patient Status Disposition: Transfer Critical Access Hosp Condition: Fair Functional capacity at discharge: bed bound Overall status at discharge: patient is progressing back to baseline - Discharge Instructions Instructions: Urinary Tract Infection in Women (DC) Follow Up With: Mustapha Peña MD [Primary Care Provider] - - Diet and Activity Activity: as per physical therapy Diet: low salt diet Hospital course: Ms. Otero is a 61 year old female with PMH of chronic liver disease/liver cirrhosis secondary to nonalcoholic steatohepatitis. Patient was [facility] ED for increasing altered mental status. Patient was admitted on 09/08 for further evaluation and management. Patient's altered mental status is likely secondary to UTI with possible hepatic encephalopathy. Patient was initially on ceftriaxone (3 days) but then switched to meropenem (since 09/11) as urine culture from 09/08 grew E. coli sensitive to amikacin, cefoxitin, ertapenem, meropenem, nitrofurantoin, Zosyn, Tigecycline, TMP/SMZ. Patient was also on home dose rifaximin 400 mg BID and lactulose 20 gram BID. Patient's mental status improves. Diagnostic EGD is considered but held given her persistently elevated INR at 2. Case was discussed with [facility]. Patient can benefit from liver transplantation given her MELD score 22 & Child-Carmen C (on 09/12/16) but no major comorbidity and never has liver transplantation work-up. The situation was discussed with patient and her and they agreed to process with the transfer. Will transfer patient to [facility] for further possible liver transplantation work-up. [facility] transfer center was called and patient has been accepted by Dr. Cornejo at [facility]. - Time Spent with Patient Total time spent providing and/or coordinating discharge services: Greater than 30 minutes - Constitutional Vitals: Temp Pulse Resp BP Pulse Ox 98.4 F 85 16 101/59 97 09/13/16 07:09 09/13/16 07:09 09/13/16 07:09 09/13/16 07:09 09/13/16 07:09 General appearance: Present: A&O X 2, no acute distress - Head Head exam: Present: atraumatic, normocephalic - Eye Eye exam: Present: PERRL, conjuntiva pink, sclera anicteric Pupils: Present: PERRL - Neck Neck exam general surgery: Present: supple, trachea midline. Absent: lymphadenopathy - Respiratory Respiratory exam: Present: decreased breath sounds. Absent: accessory muscle use, rales, rhonchi, wheezes - Cardiovascular Cardiovascular exam: Present: RRR, +S1, +S2. Absent: diastolic murmur, gallop, rubs, systolic murmur - GI/Abdominal GI/Abdominal exam: Present: distended, normal bowel sounds, soft, no peritoneal signs. Absent: tenderness - Extremities Exam Extremities exam: Present: warm, radial pulses palpable and symetrical. Absent : calf tenderness, cyanotic, pedal edema - Neurological Exam Neurological exam: Present: CN II-XII intact, no focal deficits. Absent: pronater drift, facial droop, speech deficit - Skin Skin exam: Present: dry, intact - VTE Documentation of Mechanical Device: Intermittent pneumatic compression device <Vasquez Myers P - Last Filed: 09/13/16 16:10> Date of Encounter: 09/13/16 - Discharge Diagnosis (1) Chronic liver disease Status: Acute (2) Altered mental status Status: Acute Qualifiers: Altered mental status type: somnolence Qualified Code(s): R40.0 - Somnolence (3) UTI (urinary tract infection) Status: Acute Qualifiers: Urinary tract infection type: site unspecified Hematuria presence: with hematuria Qualified Code(s): N39.0 - Urinary tract infection, site not specified; R31.9 - Hematuria, unspecified (4) DVT prophylaxis Status: Acute Procedures/tests Complete & Pending: Procedures Performed prior 72 hours Category Date Time Status CT abd pelvis w iv and oral [CT] Routine Cat Scan 09/10/16 20:00 Completed US liver [US] Routine Exams 09/11/16 11:30 Completed Date of admission: 09/08/16 22:31 Primary care physician: Mustapha Peña MD Consults: 09/09/16 00:26 Consult to Freelance Digital Project Manager [CONS] Routine Reason for SW Consult: patient is from [facility] 09/10/16 08:52 Consult to Gastroenterology [CONS] Routine Consulting Provider: Gastroenterology Carolyn Reason for Consult: ?Cirrhosis, Spoke with Diaz Call Completed: Yes 09/10/16 11:08 Consult to Wound Care [CONS] Routine Reason for Consult: stage 2 to coccyx Call Completed: No Hospital course: Ms. Otero is a 61 year old female - Time Spent with Patient Total time spent providing and/or coordinating discharge services: - Constitutional Vitals: Temp Pulse Resp BP Pulse Ox 97.8 F 86 15 103/56 98 09/13/16 14:49 09/13/16 14:49 09/13/16 14:49 09/13/16 14:49 09/13/16 14:49 - Attending Attestation I examined this patient and my medical decision-making was reviewed with the LADLE POURER/PA/Advanced Practice Nurse/Resident Physician. I agree with the documented findings, disposition and treatment plan as described except to the extent set forth below. Admitted with altered mental status. Etiology: Likely urosepsis. She has underlying cirrhosis. MELD score 22 Child Carmen C was not seen by hepatology before. will transfer to [facility] liver transplant team for further evaluation ( patient was not referred to liver transplant before ever) case discussed with GI and agrees with plan updated family all above and they agreed
[2016-09-13 14:53] VITALS: BP 103/56
[2016-09-14 07:34] LABS: Ceruloplasmin 13 mg/dL (17-54)
[2016-09-14 07:38] LABS: ANA IgG by ELISA NONE DETECTED (None Detected)
[2016-09-14 07:39] LABS: F-Actin (sm muscle) Ab IgG 21 Units (0-19); Myeloperoxidase Ab 0 AU/mL (0-19); Serine Protease-3 Antibody 1 AU/mL (0-19)
[2016-09-14 07:50] LABS: Smooth Muscle Ab Titer IgG 1:20 (<1:20)
== END 2016-09-13 19:50 | disposition critical access hospital (66) | DRG 720 ==
LOC: EMEROO 17:56 → 2NENU 17:56
PROVIDERS: ADMIT Internal Medicine; ATTEND Internal Medicine